=== PATIENT | female | born 1950 | race Caucasian/White ===

== ENCOUNTER 2021-05-28 09:34 | Outpatient (CLI) | payer MEDICARE | END 2021-05-28 09:35 | disposition home or self-care (01) | LOC: CSHMAMMO 09:34 | PROVIDERS: ATTEND Internal Medicine | DX: Z12.31 Encounter for screening mammogram for malignant neoplasm of breast (principal); Z80.3 Family history of malignant neoplasm of breast; Z91.89 Other specified personal risk factors, not elsewhere classified | CPT/HCPCS: 77063; 77067 ==

== ENCOUNTER 2025-04-23 09:21 | Day surgery (SDC) | payer MEDICARE ==
[2025-04-23] MEDS ORDERED: Iopamidol 300 61% 100 ML VIAL FS ONE (10:14)
== END 2025-04-23 12:15 | disposition home or self-care (01) ==
LOC: CSHCCL 09:21
PROVIDERS: ATTEND Internal Medicine Cardiovascular Disease
DX: I47.20 Ventricular tachycardia, unspecified (principal); I48.0 Paroxysmal atrial fibrillation; I48.3 Typical atrial flutter; I47.10 Supraventricular tachycardia, unspecified; I25.10 Atherosclerotic heart disease of native coronary artery without angina pectoris; Z95.810 Presence of automatic (implantable) cardiac defibrillator; Z79.01 Long term (current) use of anticoagulants
CPT/HCPCS: 36005; 75820; Q9967